=== PATIENT | female | born 1960 | race Caucasian/White ===

== ENCOUNTER 2022-08-08 11:47 | Outpatient (CLI) | payer BC, SELFPAY ==
[2022-08-08 16:33] LABS: Strep A DNA Probe* NOT DETECTED (No Detected)
[2022-08-08 16:46] LABS: PCR FLU A Negative PCR FLU A (Negative); PCR FLU B Negative PCR FLU B (Negative); SARS PCR* POSITIVE SARS-CoV-2 (Negative)
== END 2022-08-08 11:48 | disposition home or self-care (01) ==
PROVIDERS: PCP Internal Medicine; Visit Provider Nurse Practitioner Family
DX: J11.1 Influenza due to unidentified influenza virus with other respiratory manifestations (principal); U07.1 COVID-19
CPT/HCPCS: 87631; 87651

== ENCOUNTER 2022-09-08 16:09 | Outpatient (CLI) | payer BC, SELFPAY ==
[2022-09-08 10:05] LABS: Cholesterol* 254 mg/dL (90-199)
[2022-09-08 10:06] LABS: HDL Cholesterol* 63 mg/dL (>=50); LDL Cholesterol Calculated 172 mg/dL (<100); Triglycerides* 95 mg/dL (40-149)
== END 2022-09-08 16:10 | disposition home or self-care (01) ==
PROVIDERS: PCP Internal Medicine; Visit Provider Internal Medicine
DX: E78.5 Hyperlipidemia, unspecified (principal); L65.9 Nonscarring hair loss, unspecified
CPT/HCPCS: 80061; 84443

== ENCOUNTER 2022-09-25 09:03 | Outpatient (CLI) | payer BC, SELFPAY ==
[2022-09-25 11:17] LABS: Albumin* 4.2 g/dL (3.3-5.0)
[2022-09-25 11:18] LABS: Chloride* 107 mmol/L (96-114); Potassium* 4.7 mmol/L (3.6-5.1); Sodium* 141 mmol/L (135-149)
[2022-09-25 11:20] LABS: Aspartate Amino Transferase* 31 U/L (12-35); Bilirubin Total* 0.4 mg/dL (0.1-1.5); Carbon Dioxide* 27 mmol/L (20-32); Creatinine* 0.8 mg/dL (0.5-1.5); Estimated Glomerular Filt Rate 83 ml/min
[2022-09-25 11:21] LABS: Alanine Aminotransferase* 21 U/L (4-35); Alkaline Phosphatase* 99 U/L (40-150); Blood Urea Nitrogen* 16 mg/dL (7-30); Calcium* 9.1 mg/dL (8.4-10.6); Glucose* 93 mg/dL (60-115); Total Protein* 6.9 g/dL (6.0-8.3)
[2022-09-25 11:50] LABS: Vitamin D 25 Hydroxy* 55 ng/mL (30-80)
== END 2022-09-25 09:04 | disposition home or self-care (01) ==
PROVIDERS: PCP Internal Medicine; Visit Provider Internal Medicine
DX: Z01.419 Encounter for gynecological examination (general) (routine) without abnormal findings (principal); E78.5 Hyperlipidemia, unspecified; E66.01 Morbid (severe) obesity due to excess calories
CPT/HCPCS: 80053; 82306

== ENCOUNTER 2023-05-11 09:10 | Outpatient (CLI) | payer OTHER, SELFPAY | END 2023-05-11 09:11 | disposition home or self-care (01) | LOC: NFLDREF 05-13 06:36 | PROVIDERS: PCP Internal Medicine; Referring Provider Internal Medicine; Visit Provider Internal Medicine | DX: G89.29 Other chronic pain (principal) | CPT/HCPCS: 80053; 82607; 84443; 86039; 86140 ==

== ENCOUNTER 2024-03-02 09:43 | Outpatient (CLI) | payer OTHER, SELFPAY ==
--- OUTSIDE RECORDS SUMMARY | 2024-03-02 09:50 | XMS_ITS | Clinical Summary ---
Author Name Unknown Organization [facility] Address [place], [place] [address] Care Team Providers Care Kitchen Supervisor Name Role Phone Anirudh Gee MD Primary Care Provider [phone] Allergies No known active allergies Medications Medication Sig Dispensed Refills Start Date End Date Status Cholecalciferol, Vitamin D3, (VITAMIN D-3) 2,000 unit tablet Take by mouth. 6000 iu daily 0 04/30/2010 Active HYDROcodone-acetami nophen, 7.5-325 mg, (NORCO 7.5-325) 7.5-325 mg per tablet Take 1 tablet by mouth every 4 hours if needed for Pain. Max acetaminophen dose: 4000mg in 24 hrs. 0 11/14/2010 Active traMADoL (ULTRAM) 50 mg tablet take 1 to 2 tablets by mouth every 6 hrs as needed 08/15/2021 Active predniSONE (DELTASONE) 20 mg tablet 12/16/2021 Active omeprazole (PRILOSEC) 20 mg Delayed-Release capsule Take 20 mg by mouth. 10/23/2020 Acti ve ibuprofen (ADVIL; MOTRIN) 200 mg tablet Take 400 mg by mouth every 6 hours if needed. 10/23/2021 Active azelastine 0.05% ophthalmic (OPTIVAR) 0.05 % ophthalmic solution Place 1 Drop into both eyes 2 times daily. 09/04/2021 Active Active Problems Problem Noted Date Diagnosed Date L4-5 and T9-10 disk bulges 11/14/2010 Lumbar facet arthropathy 11/14/2010 Allergic rhinitis, cause unspecified 06/02/2007 Obesity, unspecified 06/02/2007 Diaphragmatic hernia without mention of obstruction or gangrene 06/02/2007 Immunizations Name Administration Dates Next Due Td (Age >=7 Years) 11/09/2006 Family History Medical History Relation Name Comments Heart Disease Father Cancer-breast Mother Cancer-colon Mother Relation Name Status Comments Father Mother Social History Tobacco Use Types Packs/Day Years Used Date Smoking Tobacco: Former Cigarettes 1 20 0 11/09/1986 - 11/09/2006 Smokeless Tobacco: Never Tobacco Cessation:Counseling Given: Yes Alcohol Use Standard Drinks/Week Comments Not Asked 0 (1 standard drink = 0.6 oz pur e alcohol) Social Connections Answer Date Recorded Frequency of Communication with Friends and Fami ly Not on file 12/16/2021 Financial Resource Strain Answer Date R ecorded Difficulty of Paying Living Expenses Not on file 12/16/2021 Difficulty of Paying Living Expenses Not on file 12/16/2021 Sex and Gender Information Value Date Recorded Sex Assigned at Not on file Gender Identity Not on file Sexual Orientation Not on file Obstetrics History Last Filed Vital Signs Vital Sign Reading Time Taken Comments Blood Pressure 111/71 12/16/2021 1:30 PM BALL MAKER Pulse 80 12/16/2021 1:30 PM BALL MAKER Temperature 36.7 ??C (98 ??F) 12/16/2021 1:30 PM BALL MAKER Respiratory Rate - - Oxygen Saturation 97% 12/16/2021 1:30 PM BALL MAKER Inhaled Oxygen Concentration - - Weight 89.3 kg (196 lb 12.8 oz) 12/16/2021 1:30 PM BALL MAKER shoes on Height - - Body Mass Index - - Plan of Treatment Health Maintenance Due Date Last Done Comments Tdap 1971 Depression screening for age 12+ 1972 HIV for age 15-65 1975 BMI (ht and wt on same day) for age 18+ 1978 Hepatitis C screening for ag e 18-79 1978 Colonoscopy through age 75 2005 Mammogram for age 45-75 2005 Pap test for age 21-65 06/19/2009 06/19/2006 Zoster (shingles) series for age 50+ (1 of 2) 2010 Lipids for age 45-75 07/09/2011 07/09/2006 Tetanus booster 11/09/2016 11/09/2006 COVID-19 vaccine series (2022-24 season) 2023 Influenza for age 50-64 07/10/2024 Pneumococcal series for age 6-64 Aged Out No longer eligible based on patient's age to complete this topic Procedures Procedure Name Priority Date/Time Associated Diagnosis Comments LIPID PANEL Timed 07/09/2006 7:44 AM CDT GYNECOLOGICAL PANEL Timed 06/19/2006 1 0:59 AM CDT from Last 3 Months or Most Recently Relevant to Health Maintenance Results * (ABNORMAL) LIPID PANEL (07/09/2006 7:44 AM CDT) CHOLESTEROL,TOTAL 214(H) 110 - 199 mg/dL [facility] TRIGLYCERIDES 68 <150 mg/dL [facility] HDL CHOLESTEROL 45 >40 mg/dL [facility] CHOL/HDL RATIO 4.76(H) <4.51 [facility] LDL CHOLESTEROL 155(H) <131 mg/dL [facility] PATIENT STATUS Fasting [facility] 07/09/2006 7:44 AM CDT 07/09/2006 7:44 AM CDT Priya Rey NP CHEMISTRY [facility] [address] [place] [address] * GYNECOLOGICAL PANEL (06/19/2006 10:59 AM CDT) CYTOLOGY ??CYTOPATHOLOGY REPORT ??[facility] ?? Status: Final Report ? [id number] ?? CLINICAL INFORMATION ?LMP ? : 06/01/06 ?Previous Pap Date ? : 03/13 ?Previous PAP Dx ? : Negative ?Previous [place]/bx date : None ?Previous Colposcopy/Bx: None ?Appearance of Cervix ??: Not given ?[place]/Bx done today ?: No ?HPV Request ? : Reflex HPV test if PAP Dx ASCUS ?? SPECIMEN SOURCE ?: Cervical/vaginal ThinPrep Vial, screening ?? SPECIMEN ADEQUACY ?: Satisfactory for evaluation Endocervical ?component present. ? INTERPRETATION/RES ULT: ?Negative for intraepithelial lesion or malignancy. ? Cytology 1st Screener : ??kek ?? Signed by: ? kek ?? This specimen was screened by the FDA approved ThinPrep Imaging ?? System and manually reviewed. ?? NOTE: The Pap test is a screening technique, not a diagnostic ?? procedure. It is used primarily to screen for squamous cancers and ?? precursor lesions. Published studies have shown that it is subject to ?? both false negative and false positive results. The pap test should ?? not be used as the sole means to diagnose or exclude pre-malignant and ?? malignant lesions. ?? COLLECTED: 06/19/06 ?? ACCESSIONED: 06/22/06 ?? SIGNED: 06/30/06 [facility] 06/19/2006 10:5 9 AM CDT 06/22/2006 11:44 AM CDT Priya Rey NP PATHOLOGY/CYTOLOGY [facility] INTERNAL ZIP [address] [address] from Last 3 Months or Most Recently Relevant to Health Maintenance Care Teams Kitchen Supervisor Relationship Specialty Start Date End Date Anirudh Gee MD [address] [place] [address] PCP - General Internal Medicine 09/26/19
--- OUTSIDE RECORDS SUMMARY | 2024-03-02 09:50 | XMS_ITS | Clinical Summary ---
Author Name Unknown Organization [facility] Address [address], [place] [address] Care Team Providers Care Veneer Sample Maker Name Role Phone Pcp, Pt Declines MD Primary Care Provider [phone] Source Comments You are receiving this document as you are listed as the primary care provider,follow-up provider, or the patient has been referred to you for consultation.This is in compliance with the Medicare and[facility] EHR Incentive Program,which states Providers who transition their patient to another setting of careor provider of care or refers their patient to another provider of care shouldprovide summary care record for each transition of care or referral. [facility] Allergies Active Allergy Reactions Criticality Noted Date Comments Pollen Extract 07/15/2017 Medications Medication Sig Dispensed Refills Start Date End Date Status HYDROcodone-acetam inophen (NORCO) 7.5-325 MG tablet 0 06/13/2017 Active omeprazole (PRILOSEC) 20 MG capsule Take 20 mg by mouth daily. Take 1 hour before a meal. Active ibuprofen (MOTRIN) 200 MG tabletIndications: Carpal tunnel syndrome on left Take 2 Tablets by mouth every 6 hours as needed for Pain (Mild Pain). This may be safely mixed with the prescription pain medications (oxycodone, hydrocodone or tramadol.)?? This may also be safely mixed with acetaminophen. 100 Tablet 10/23/2021 Active Active Problems No known active problems Family History Medical History Relation Name Comments Heart Disease Father Cancer Mother Relation Name Status Comments Father Mother Social History Tobacco Use Types Packs/Day Years Used Date Smoking Tobacco: Former Smokeless Tobacco: Never Sex and Gender Information Value Date Recorded Sex Assigned at Not on file Gender Identity Not on file Sexual Orientation Not on file Last Filed Vital Signs Vital Sign Reading Time Taken Comments Blood Pressure - - Pulse - - Temperature - - Respiratory Rate - - Oxygen Saturation - - Inhaled Oxygen Concentration - - Weight 89.8 kg (198 lb) 07/10/2020 10:47 AM CDT Height 160 cm (5' 3) 07/10/2020 10:47 AM CDT Body Mass Index 35.07 07/10/2020 10:47 AM CDT Plan of Treatment Health Maintenance Due Date Last Done Comments Cervical Cancer Screening Due 1960 Colon Cancer Screening Plan Due 1960 Hep C Screening (Preventive Services) 1960 Mammogram 1960 HIV Screening (Preventive Services) 1976 Adult Preventive Visit 1978 Cholesterol 2005 Zoster/Shingles (2 of 2) 11/17/2019 09/22/2019 COVID-19 Vaccine ( season) 2023 Influenza (#1) 2023 09/09/2007, 09/09/2007 DTaP/Tdap/Td (2 - Tdap) 09/22/2029 09/22/20 19, 11/11/2008, 11/09/2006, Additional history exists HepA Aged Out No longer eligi ble based on patient's age to complete this topic HepB Aged Out No longer eligi ble based on patient's age to complete this topic Hib Aged Out No longer eligi ble based on patient's age to complete this topic IPV (Polio) Aged Out No longer eligi ble based on patient's age to complete this topic MCV4 Aged Out No longer eligi ble based on patient's age to complete this topic Pneumococcal Aged Out No longer eligi ble based on patient's age to complete this topic Care Teams Veneer Sample Maker Relationship Specialty Start Date End Date Pcp, Pt Nella, [place] [address] PCP - General 07/15/17
--- OUTSIDE RECORDS SUMMARY | 2024-03-02 09:50 | XMS_ITS | Encounter Summary ---
Author Name Unknown Organization [facility] Address [address] [place] [address] Care Team Providers Care Help Desk Agent Name Role Phone Unavailable Primary Care Provider Unavailabl e Encounter Details Date Type Department Care Team (Late st Contact Info) Description 01/07/2024 Orders Only Division of Gastroenterology in [place], [place] [address] [place] [id number] Arnold Ervin M.D. [address] [place] [address] Genetic Susceptibility To Disease Social History Tobacco Use Types Packs/Day Years Used Date Smoking Tobacco: Former Cigarettes 1 29 0 02/19/1975 - 11/21/2003 Smokeless Tobacco: Never Alcohol Use Standard Drinks/Week Comments Yes 3 (1 standard drink = 0.6 oz pur e alcohol) Social Connection and Isolat ion Panel [NHANES] Answer Date Recorded Frequency of Communication w ith Friends and Family Not on file 05/24/2020 Frequency of Social Gatherin gs with Friends and Family Not on file 05/24/2020 Attends Yarsani Services Not on file 05/24 Do you belong to any clubs o r organizations such as sabianism groups, unions, fraternal or athletic groups, or school groups? Yes 05/24/2020 How often do you attend meet ings of the clubs or organizations you belong to? More than 4 times per year 05/24/2020 Marital Status Not on file 05/24/2020 AUDIT-C Answer Date Recorded Q1: How often do you have a drink containing alc ohol? 2-3 times a week 11/28/2019 Q2: How many drinks containi ng alcohol do you have on a typical day when you are drinking? 1 or 2 11/28/2019 Q3: How often do you have si x or more drinks on one occasion? Never 11/28/2019 Overall Financial Resource Strain (CARDIA) Answe r Date Recorded How hard is it for you to pa y for the very basics like food, housing, medical care, and heating? Not very hard 05/24/2020 [facility] - Occupational Stress Questionnaire Answer Date Recorded Do you feel stress - tense, restless, nervous, or anxious, or unable to sleep at night because your mind is troubled all the time - these days? To some extent 05/24/2020 Exercise Vital Sign Answer Date Recorde d On average, how many days pe r week do you engage in moderate to strenuous exercise (like a brisk walk)? 0 days 11/28/2019 On average, how many minutes do you engage in exercise at this level? 0 min 11/28/2019 Hunger Vital Sign Answer Date Recorded Worried About Running Out of Food in the Last Ye ar Not on file 05/24/2020 Within the past 12 months, t he food you bought just didn't last and you didn't have money to get more. Patient declined PRAPARE - Transportation Answer Date Re corded In the past 12 months, has l ack of transportation kept you from medical appointments or from getting medications? No 11/10 In the past 12 months, has l ack of transportation kept you from meetings, work, or from getting things needed for daily living? No 11/28/2019 Nutrition Answer Date Recorded Nutrition: EVOO Fat Source Unknown 06/27 Nutrition: Servings of Fruits/Vegetables per Day Not on file 06/27/2023 Dental Answer Date Recorded Dental: Regular Dentist Unknown 06/27/20 Education Answer Date Recorded What is the highest level of school you have completed or the highest degree you have received? Some college, no degree 11/28/2019 Sex and Gender Information Value Date Recorded Sex Assigned at Female 05/25/2020 8:23 AM CDT Gender Identity Female 05/25/2020 8:23 AM CDT Sexual Orientation Straight 05/25/2020 8: 23 AM CDT documented as of this encounter Plan of Treatment Not on file documented as of this encounter Procedures Procedure Name Priority Date/Time Associated Diagnosis Comments EXT TAPESTRY Routine 05/22/2020 12:00 AM CDT Genetic Susceptibility To Disease documented in this encounter Results * EXT Tapestry (05/22/2020 12:00 AM CDT) Gene Studied BRCA1,BRCA2,MLH1,MSH 2,MSH 6,PMS2,EPCAM,APOB,LDLR,LD LRAP1,PCSK9 12:00 AM CDT [facility] Genetic Disease Assessed Evaluation of 11 genes associated with Hereditary Breast and Ovarian Cancer, Santana Syndrome and Familial Hypercholesterolemia. 12:00 AM CDT [facility] Genetic Analysis Overall Interpretation Negative results through Tapestry do not replace diagnostic testing for patients with a personal or family history of cancer/hypercholesterolem ia due to limitations with methodology. Consider a referral to a genetic counselor for diagnostic testing if warranted. 12:00 AM CDT [facility] Genetic Analysis Report See Tapestry PDF Report No actionable gene changes were detected in the genes that cause Familial Hypercholesterolemia. The genes tested for this condition were APOB, LDLR, LDLRAP1, and PCSK9.No actionable gene changes were detected in the genes that cause Hereditary Breast and Ovarian Cancer. The genes tested for this condition were BRCA1 and BRCA2.No actionable gene changes were detected in the genes that cause Santana Syndrome. The genes tested for this condition were MLH1, MSH2, MSH6, PMS2 and EPCAM. Clinical confirmation of actionable variants is advised prior to changing your medical care. Genetic counseling is recommended. This test is not intended to diagnose a disease, determine medical treatment, or tell the user anything about their current state of health. This test is intended to provide users with their genetic information to inform lifestyle decisions and conversations with their doctor. Any diagnostic or treatment decisions should be based on testing and/or other information that your healthcare provider determines to be appropriate for you. DNA extracted from your saliva sample was captured and enriched using a custom set of reagents ([employer]+ chemistry). Targeted regions were then sequenced using an Illumina DNA sequencing system. Alignment to a modified version of GRCh38 and variant calling were completed using a customized version of [employer]'s DNAseq software, requiring 20x coverage for validated variant calls. The test panel is bioinformatically selected from the [employer] Exome+. Copy Number Variants (CNVs) were called using a proprietary bioinformatics pipeline that compared the coverage profile of your sample with the coverage profiles of a reference set of other samples. [facility] then analyzed generated variant data for the exons and 10 bp of flanking intronic sequence (and select tagged intronic variants) of the 11 genes included in [facility] from the [employer] Database. The Analytical Range includes single nucleotide variants (SNVs), indels up to 20 bp in length, and CNVs. Note: CNV sensitivity is limited to events that span two or more exons. For genes involved in Familial Hypercholesterolemia, only variants associated with the condition are reported, while variants associated with other phenotypes such as hypobetalipoproteinemia are not included. Some known complex variants like inversion exon 1-7 in the MSH2 gene (Rosa inversion) or exons 11-15 of the PMS2 gene are not analyzed or reported. Finally, it is important to note that this assay cannot detect all variants known to increase disease risk. ??Specifically, there are regions that are not covered, such as deep intronic, promoter, homopolymer regions greater than 7 bp, and untranslated regions. 1 12:00 AM T [facility] Human Reference Sequence Assembly GRCh38 1 12:00 AM [facility] Saliva (Mouth) 05/22/2020 Arnold Ervin M.D. LAB GENETI C TESTING [facility] [address], [address] [place] [address], [facility] [address] [address], [address]. [place] [address] documented in this encounter Visit Diagnoses Diagnosis Genetic Susceptibility To Disease documented in this encounter
--- OUTSIDE RECORDS SUMMARY | 2024-03-02 09:50 | XMS_ITS | Clinical Summary ---
Author Name Unknown Organization [facility] Address [address] [place] [address] Care Team Providers Care Spreader Operator Name Role Phone Unavailable Primary Care Provider Unavailabl e Source Comments Patient records contain information from all sites at [facility]. For routine questions regarding patient records, call [phone] during business hours, M-F 8:00 AM - 5:00 PM Central Time. Record requests for emergency care only can be directed to [phone] at any time.[facility] Allergies Active Allergy Reactions Criticality Noted Date Comments House Dust Mite Other (see comments) 10/23/2004 No reaction listed Mold Other (see comments) 10/23/2004 No reaction listed Ragweed Other (see comments) 09/20/2015 Sneezing Homer Other (see comments) 10/23/2004 No reaction listed Medications Medication Sig Dispensed Refills Start Date End Date Status metroNIDAZOLE (ROSADAN) 0.75 % gel Apply 1 application topically 2 (two) times a day. Apply to face twice daily. 09/21/2015 Active HYDROcodone-acetam inophen (NORCO) 7.5-325 mg per tablet Take 1 tablet by mouth every 6 (six) hours as needed. 04/19/2012 Active escitalopram (LEXAPRO) 10 mg tablet 3 10/06/2018 Active fluticasone (FLONASE) 50 mcg/actuation nasal spray Seasonal 11 10/10/2018 Active meclizine (ANTIVERT) 25 mg tablet Take 25 mg by mouth. 12/29/2016 Active famotidine (PEPCID) 40 mg tablet Take 1 tablet (40 mg total) by mouth daily. 30 tablet 11 05/29/2020 Active omeprazole (PriLOSEC) [address] capsule TAKE ONE CAPSULE BY MOUTH ONE TIME DAILY 90 capsule 01/23/2022 Active Active Problems Problem Noted Date Diagnosed Date Thrombosis Deep Vein Personal History 07/19/2018 Encounters Date Type Department Care Team Description 01/07/2024 Orders Only Division of Gastroenterology in [place], [place] [address] [place] [address] Arnold Ervin M.D. Genetic Susceptibility To Disease from Last 3 Months Immunizations Name Administration Dates Next Due Influenza, Unspecified 09/09/2007 Td, (Adult) Unspecified 11/09/1996 Family History Medical History Relation Name Comments Coronary artery disease Father Wilberto Skin cancer Father Wilberto pre-cancerous Alcohol abuse Maternal Grandfather Jordon Coronary artery disease Maternal Grandfather Jordon Breast cancer Mother Liz Colon cancer Mother Liz Alcohol abuse Mother's Brother 1 Quentin Anxiety disorder Mother's Brother 1 Quentin Depression Mother's Brother 1 Quentin Diabetes Mother's Brother 1 Quentin Psychiatric Mother's Brother 1 Quentin Suicide Attempts Mother's Brother 1 Quentin Alcohol abuse Mother's Brother 2 Junior Anxiety disorder Mother's Brother 2 Junior Depression Mother's Brother 2 Junior Diabetes Mother's Brother 2 Junior Psychiatric Mother's Brother 2 Junior Transient ischemic attack Paternal Grandfather Uriah Anxiety disorder Paternal Grandmother Mireille Depression Paternal Grandmother Mireille Stroke Paternal Grandmother Mireille Transient ischemic attack Paternal Grandmother Mireille Bipolar disorder Uncle Depression Uncle Diabetes Uncle Relation Name Status Comments Father Wilberto Maternal Grandfather Jordon Mother Liz Mother's Brother 1 Quentin Mother's Brother 2 Junior Paternal Grandfather Uriah Paternal Grandmother Mireille Uncle Social History Tobacco Use Types Packs/Day Years [...] and Family Not on file 05/24/2020 Attends Jewish Services Not on file 05/24 Do you [...] care, and heating? Not very hard 05/24/2020 [facility] [place] - Occupational Stress Questionnaire Answer Date Recorded [...] Orientation Straight 05/25/2020 8: 23 AM CDT Last Filed Vital Signs Vital Sign Reading Time Taken Comments Blood Pressure 129/74 05/28/2020 9:15 AM CDT Pulse 50 05/28/2020 9:01 AM CDT Temperature 35.8 ??C (96.4 ??F) 05/28/2020 9:01 AM CD T Respiratory Rate 17 05/28/2020 9:01 AM CDT Oxygen Saturation 97% 05/28/2020 9:15 AM CDT Inhaled Oxygen Concentration - - Weight 88.5 kg (195 lb) 05/28/2020 7:01 AM CDT Height 161.5 cm (5' 3.58) 12/02/2019 8:20 AM CS T Body Mass Index 33.91 12/02/2019 8:20 AM SHALE PLANER OPERATOR Plan of Treatment Health Maintenance Due Date Last Done Comments CT Colonography 1960 Cologuard 1960 Fasting Glucose for Diabetes Screening 1960 HIV Screening 1960 Hepatitis C Screening 1960 Lipid (Cholesterol) Screening 1960 Zoster Vaccines (2 of 2) 11/17/2019 09/22/2019 COVID-19 Vaccine ( - season) 2023 Mammogram 09/23/2023 09/23/2022, 11/10, 10/23/2017, Additional history exists Depression Screening (Annual PHQ-2) 11/09/2023 Colonoscopy 05/28/2025 05/28/2020, 05/10, 10/01/2015, Additional history exists Colorectal Cancer Surveillance 05/28/2025 DTaP,Tdap,and Td Vaccines (2 - Td or Tdap) 09/22/2029 09/22/2019, 11/11/2008, 11/09/1996 Pneumococcal vaccine (0-64 years) Aged Out No longer eligible based on patient's age to complete this topic Medical Devices Implanted Type Area Spring Intern Device Identifier Shelf Expiration Date Model / Serial / Lot Mesh Or Patch Mesh or Patch Other/Legacy - See Implant Description Description:Vaginal Mesh imp lant in 2008. Conversions - Default Historical Implant Device Implanted:09/10 (Quantity not on file) Urogenital Implant Description:Device Status Te xt - Urogenitl. mesh. Procedures Procedure Name Priority Date/Time Associated Diagnosis Comments BI BREAST SCREENING BILATERAL WITH TOMOSYNTHESIS RAD - Routine (most inpatients and all outpatients) 09/23/2022 10:30 AM SHALE PLANER OPERATOR Screening Mammogram Breast Cancer COLONOSCOPY RESTRICTED Routine 05/28/2020 7:33 AM CDT Cancer Colon Family History Genetic Susceptibility To Cancer from Last 3 Months or Most Recently Relevant to Health Maintenance Results * BI Breast Screening Bilateral with Tomosynthesis (09/23/2022 10:30 AM SHALE PLANER OPERATOR) Anatomical Region Laterality Modality Breast, Breast Imaging RST L OS, Breast Imaging ARZ LOS, Breast Imaging FLA LOS Bilateral Mammography 09/23/2022 11:1 0 AM SHALE PLANER OPERATOR Impressions 09/23/2022 11:26 AM SHALE PLANER OPERATOR Negative. RECOMMENDATION: ??Annual Screening Mammogram ASSESSMENT: ??BI-RADS: 1: Negative. Narrative 09/23/2022 11:26 AM SHALE PLANER OPERATOR EXAM: ??BI BREAST SCREENING BILATERAL WITH TOMOSYNTHESIS Current study was evaluated with a Computer Aided Detection (CAD) system. INDICATION: ??Screening mammogram. COMPARISON: ??Prior exam(s) were available and reviewed for comparison. DENSITY: ??b. There are scattered areas of fibroglandular density. FINDINGS: ??No findings of malignancy. ??No significant change since prior exam. Procedure Note Jordyn Davis M.D. - 09/23/2022 EXAM: BI BREAST SCREENING BILATERAL WITH TOMOSYNTHESIS Current study was evaluated with a Computer Aided Detection (CAD) system. INDICATION: Screening mammogram. COMPARISON: Prior exam(s) were available and reviewed for comparison. DENSITY: b. There are scattered areas of fibroglandular density. FINDINGS: No findings of malignancy. No significant change since priorexam. IMPRESSION: Negative. RECOMMENDATION: Annual Screening Mammogram ASSESSMENT: BI-RADS: 1: Negative. Anirudh CABRERA BI PROCEDURE S from Last 3 Months or Most Recently Relevant to Health Maintenance
--- OUTSIDE RECORDS SUMMARY | 2024-03-02 09:50 | XMS_ITS ---
Author Name Unknown Organization [facility] Address [address] [place] [address] Care Team Providers Care Glass Cutting Machine Operator Name Role Phone Unavailable Unavailable Unavailable Surgery Details Not on file Complications Check Surgery Details section. Procedure Estimated Blood Loss Check Surgery Details section. Procedure Findings Check Surgery Details section. Procedure Specimens Taken Check Surgery Details section.
--- OUTSIDE RECORDS SUMMARY | 2024-03-02 09:50 | XMS_ITS | Encounter Summary ---
Author Name Unknown Organization [facility] Address [address] [place] [address] Care Team Providers Care Sedimentationist Name Role Phone Unavailable Primary Care Provider Unavailabl e Reason for Referral * Outpatient (Routine) - Closed Specialty Diagnoses / Procedures Referred By Christine owens Referred To Contact Gynecology Diagnoses Infection Urinary Tract Chronic Chiqui Edwards M.D. [address] [place] [address] [facility] Referral ID Status Reason Start Date Expiration Date Visits Re quested Visits Authorized [id number] Closed 07/09/2018 07/09/2019 1 1 Encounter Details Date Type Department Care Team (Late st Contact Info) Description 07/09/2018 [facility] [address] [place] [address] Chiqui Edwards M.D. [address] [place] [address] Infection Urinary Tract Chronic (Primary Dx) Social History Tobacco Use Types Packs/Day Years Used Date Smoking Tobacco: Unknown Sex and Gender Information Value Date Recorded Sex Assigned at Female 05/25/2020 8:23 AM CDT Gender Identity Female 05/25/2020 8:23 AM CDT Sexual Orientation Straight 05/25/2020 8: 23 AM CDT documented as of this encounter Plan of Treatment Scheduled Referrals Name Type Priority Associated Diagnoses Order Schedule Urogynecology Referral Outpatient Referral Routine Infection Urinary Tract Chronic Expected: 07/09/2018 (Approximate), Expires: 07/09/2021 documented as of this encounter Visit Diagnoses Diagnosis Infection Urinary Tract Chronic- Primary documented in this encounter Additional Health Concerns Infection Onset Date Last Indicated Resolved Time COVID19 Pending 05/25/2020 05/25/2020 05/26/2020 2 :30 AM CDT documented as of this encounter
--- OUTSIDE RECORDS SUMMARY | 2024-03-02 09:50 | XMS_ITS | Referral Summary ---
Author Name Unknown Organization [facility] Address [address] [place] [address] Care Team Providers Care Security Systems Technician Name Role Phone Unavailable Primary Care Provider Unavailabl e Source Comments Patient records contain information from all sites at [facility]. For routine questions regarding patient records, call [phone] during business hours, M-F 8:00 AM - 5:00 PM Central Time. Record requests for emergency care only can be directed to [phone] at any time.[facility] Encounters Date Type Department Care Team Description 01/07/2024 Orders Only Division of Gastroenterology in [place], [place] [address] [place] [address] Arnold Ervin M.D. Genetic Susceptibility To Disease from Last 3 Months Allergies Active Allergy Reactions Criticality Noted Date [...] Date Thrombosis Deep Vein Personal History 07/19/2018 Immunizations Name Administration Dates Next Due Influenza, Unspecified 09/09/2007 Td, (Adult) Unspecified 11/09/1996 Social History Tobacco Use Types Packs/Day Years [...] and Family Not on file 05/24/2020 Attends Yazidism Services Not on file 05/24 Do you belong to any clubs o r organizations such as restorationism groups, unions, fraternal or athletic groups, or [...] care, and heating? Not very hard 05/24/2020 [facility] [place] of Occupat ional Health - Occupational Stress [...] Body Mass Index 33.91 12/02/2019 8:20 AM PROJECT COORDINATOR Plan of Treatment Not on file Medical Devices Implanted Type Area Safety Fire Boss Device Identifier Shelf Expiration Date Model / [...] inpatients and all outpatients) 09/23/2022 10:30 AM PROJECT COORDINATOR Screening Mammogram Breast Cancer COLONOSCOPY RESTRICTED Routine 05/28/2020 7:33 AM CDT Cancer Colon Family History Genetic Susceptibility To Cancer from Last 3 Months or Most Recently Relevant to Health Maintenance Results * BI Breast Screening Bilateral with Tomosynthesis (09/23/2022 10:30 AM PROJECT COORDINATOR) Anatomical Region Laterality Modality Breast, Breast Imaging RST L OS, Breast Imaging ARZ LOS, Breast Imaging FLA LOS Bilateral Mammography 09/23/2022 11:1 0 AM PROJECT COORDINATOR Impressions 09/23/2022 11:26 AM PROJECT COORDINATOR Negative. RECOMMENDATION: ??Annual Screening Mammogram ASSESSMENT: ??BI-RADS: 1: Negative. Narrative 09/23/2022 11:26 AM PROJECT COORDINATOR EXAM: ??BI BREAST SCREENING BILATERAL WITH TOMOSYNTHESIS [...] Screening Mammogram ASSESSMENT: BI-RADS: 1: Negative. Anirudh Gee M.D. IMG BI PROCEDURE S from Last 3 Months or Most Recently Relevant to Health Maintenance
[2024-03-02 10:05] LABS: Lab Add On Test New Spec Needed
== END 2024-03-02 09:44 | disposition home or self-care (01) ==
LOC: NFLDREF 09:44
PROVIDERS: PCP Internal Medicine; Visit Provider Internal Medicine
DX: Z13.1 Encounter for screening for diabetes mellitus (principal); Z13.220 Encounter for screening for lipoid disorders
CPT/HCPCS: 80053; 80061

== ENCOUNTER 2024-06-14 17:02 | Outpatient (CLI) | payer OTHER, SELFPAY ==
--- OUTSIDE RECORDS SUMMARY | 2024-06-15 11:03 | XMS_ITS | Encounter Summary ---
Author Organization [facility] Address [address] [place] [address] Care Team Providers Care Wedger Name Role Phone Unavailable Primary Care Provider Unavailabl e Reason for Referral * Outpatient (Routine) - Closed Specialty Diagnoses / Procedures Referred By Christine owens Referred To Contact Gynecology Diagnoses Infection Urinary Tract Chronic Chiqui Edwards M.D. [address] [place] [address] [facility] Referral ID Status Reason Start Date Expiration Date Visits Re quested Visits Authorized [id number] Closed 07/09/2018 07/09/2019 1 1 Encounter Details Date Type Department Care Team (Late st Contact Info) Description 07/09/2018 [facility] [address] [place] [address] Chiqui Edwards M.D. [address] [place] [phone] Infection Urinary Tract Chronic (Primary Dx) Social [...]
--- OUTSIDE RECORDS SUMMARY | 2024-06-15 11:03 | XMS_ITS | Encounter Summary ---
Author Organization [facility] Address [address] [place] [address] Care Team Providers Care Yeast Washer Name Role Phone Unavailable Primary Care Provider Unavailabl e Encounter Details Date Type Department Care Team (Latest Contact Info) Description 03/09/2024 [facility] [address] [place] [address] Anirudh Gee M.D. [address] [place] [address] Gastroesophageal Reflux Disease Without Esophagitis (Primary Dx) Social History Tobacco Use Types [...] and Family Not on file 05/24/2020 Attends Scientologist Services Not on file 05/24 Do you belong to any clubs o r organizations such as rastafarian groups, unions, fraternal or athletic groups, or [...] care, and heating? Not very hard 05/24/2020 [facility] Occupat ional Health - Occupational Stress [...] on file documented as of this encounter Visit Diagnoses Diagnosis Gastroesophageal Reflux Disease Without Esophagitis- Primary documented in this encounter
--- OUTSIDE RECORDS SUMMARY | 2024-06-15 11:03 | XMS_ITS ---
Author Organization [facility] Address [address] [place] [address] Care Team Providers Care Collar Pointer Name Role Phone Unavailable Unavailable Unavailable Surgery Details Not on file Complications Check Surgery Details section. Procedure Estimated Blood Loss Check Surgery Details section. Procedure Findings Check Surgery Details section. Procedure Specimens Taken Check Surgery Details section.
--- OUTSIDE RECORDS SUMMARY | 2024-06-15 11:03 | XMS_ITS | Clinical Summary ---
Author Organization [facility] Address [address] [place] [address] Care Team Providers Care Spinning Bath Patroller Name Role Phone Unavailable Primary Care Provider Unavailabl e Source Comments Patient records contain information from all sites at [facility]. For routine questions regarding patient records, call [phone] during business hours, M-F 8:00 AM - 5:00 PM Central Time. Record requests for emergency care only can be directed to [phone] at any time.[facility] Allergies Active Allergy Reactions Criticality Noted [...] Encounters Date Type Department Care Team Description 03/16/2024 [facility] [address] [place] [address] Anirudh Gee M.D. Other Specified Symptoms And Signs Involving The Digestive System And Abdomen (Primary Dx); Melena from Last 3 Months Immunizations Name Administration [...] and Family Not on file 05/24/2020 Attends Gnosticism Services Not on file 05/24 Do you belong to any clubs o r organizations such as christian groups, unions, fraternal or athletic groups, or [...] care, and heating? Not very hard 05/24/2020 [facility] of Occupat ional Health - Occupational Stress [...] Body Mass Index 33.91 12/02/2019 8:20 AM LINE PERSON Plan of Treatment Health Maintenance Due Date [...] this topic Medical Devices Implanted Type Area Writing Manager Device Identifier Shelf Expiration Date Model / [...] inpatients and all outpatients) 09/23/2022 10:30 AM LINE PERSON Screening Mammogram Breast Cancer COLONOSCOPY RESTRICTED Routine 05/28/2020 7:33 AM CDT Cancer Colon Family History Genetic Susceptibility To Cancer from Last 3 Months or Most Recently Relevant to Health Maintenance Results * BI Breast Screening Bilateral with Tomosynthesis (09/23/2022 10:30 AM LINE PERSON) Anatomical Region Laterality Modality Breast, Breast Imaging RST L OS, Breast Imaging ARZ LOS, Breast Imaging FLA LOS Bilateral Mammography 09/23/2022 11:1 0 AM LINE PERSON Impressions 09/23/2022 11:26 AM LINE PERSON Negative. RECOMMENDATION: ??Annual Screening Mammogram ASSESSMENT: ??BI-RADS: 1: Negative. Narrative 09/23/2022 11:26 AM LINE PERSON EXAM: ??BI BREAST SCREENING BILATERAL WITH TOMOSYNTHESIS [...] ASSESSMENT: BI-RADS: 1: Negative. Anirudh Gee M.D. IMReinaldo BI PROCEDURE S from Last 3 Months or Most Recently Relevant to Health Maintenance
--- OUTSIDE RECORDS SUMMARY | 2024-06-15 11:03 | XMS_ITS | Encounter Summary ---
Author Organization [facility] Address [address] [place] [address] Care Team Providers Care Medical Aide Name Role Phone Unavailable Primary Care Provider Unavailabl e Reason for Referral * Outpatient (Routine) - Authorized Specialty Diagnoses / Procedures Referred By Contact Referred To Contact Gastroenterology and Hepatology Diagnoses Other Specified Symptoms And Signs Involving The Digestive System And Abdomen Anirudh Fernandez M.D. [address] [place] [address] [facility] Referral ID Status Reason Start Date Expiration Date V isits Requested Visits Authorized [id number] Authorized 03/16/2024 09/15/2025 1 1 Encounter Details Date Type Department Care Team (Late st Contact Info) Description 03/16/2024 [facility] [address] [place] [address] Anirudh Gee M.D. [address] [place] [phone] Other Specified Symptoms And Signs Involving The Digestive System And Abdomen (Primary Dx); Melena Social History Tobacco Use Types Packs/Day Years [...] and Family Not on file 05/24/2020 Attends Quaker Services Not on file 05/24 Do you belong to any clubs o r organizations such as druze groups, unions, fraternal or athletic groups, or [...] care, and heating? Not very hard 05/24/2020 [facility] [place] of Occupat ional Health - Occupational Stress [...] Name Type Priority Associated Diagnoses Order Schedule Gastroenterology & Hepatology Referral Outpatient Referral Routine Other Specified Symptoms And Signs Involving The Digestive System And Abdomen Melena Expected: 03/16/2024 (Approximate), Expires: 06/16/2025 documented as of this encounter Visit Diagnoses Diagnosis Other Specified Symptoms And Signs Involving The Digestive System And Abdomen- Primary Melena documented in this encounter
--- OUTSIDE RECORDS SUMMARY | 2024-06-15 11:03 | XMS_ITS | Referral Summary ---
Author Organization [facility] Address [address] [place] [address] Care Team Providers Care Laundry Machine Mechanic Name Role Phone Unavailable Primary Care Provider Unavailabl e Source Comments Patient records contain information from all sites at [facility]. For routine questions regarding patient records, call [phone] during business hours, M-F 8:00 AM - 5:00 PM Central Time. Record requests for emergency care only can be directed to [phone] at any time.[facility] Encounters Date Type Department Care Team Description 03/16/2024 [facility] [address] [place] [address] Anirudh Gee M.D. Other Specified Symptoms And Signs Involving The Digestive System And Abdomen (Primary Dx); Melena from Last 3 Months Allergies Active Allergy [...] and Family Not on file 05/24/2020 Attends Congregation Services Not on file 05/24 Do you [...] care, and heating? Not very hard 05/24/2020 [facility] [place] of Occupat ional Health - Occupational Stress [...] Body Mass Index 33.91 12/02/2019 8:20 AM VEST MAKER Plan of Treatment Not on file Medical Devices Implanted Type Area First Dyer Device Identifier Shelf Expiration Date Model / [...] inpatients and all outpatients) 09/23/2022 10:30 AM VEST MAKER Screening Mammogram Breast Cancer COLONOSCOPY RESTRICTED Routine 05/28/2020 7:33 AM CDT Cancer Colon Family History Genetic Susceptibility To Cancer from Last 3 Months or Most Recently Relevant to Health Maintenance Results * BI Breast Screening Bilateral with Tomosynthesis (09/23/2022 10:30 AM VEST MAKER) Anatomical Region Laterality Modality Breast, Breast Imaging RST L OS, Breast Imaging ARZ LOS, Breast Imaging FLA LOS Bilateral Mammography 09/23/2022 11:1 0 AM VEST MAKER Impressions 09/23/2022 11:26 AM VEST MAKER Negative. RECOMMENDATION: ??Annual Screening Mammogram ASSESSMENT: ??BI-RADS: 1: Negative. Narrative 09/23/2022 11:26 AM VEST MAKER EXAM: ??BI BREAST SCREENING BILATERAL WITH TOMOSYNTHESIS [...]
--- OUTSIDE RECORDS SUMMARY | 2024-06-15 11:04 | XMS_ITS | Clinical Summary ---
Author Organization [facility] Address [address], [place] [address] Care Team Providers Care Rag Production Worker Name Role Phone Pcp, Pt Declines MD Primary Care Provider [phone] Source Comments You are receiving this document as you are listed as the primary care provider,follow-up provider, or the patient has been referred to you for consultation.This is in compliance with the Medicare and[facility] EHR Incentive Program,which states Providers who transition their patient to another setting of careor provider of care or refers their patient to another provider of care shouldprovide summary care record for each transition of care or referral. [facility] Allergies Active Allergy Reactions Criticality Noted Date [...] COVID-19 Vaccine ( season) 2023 Influenza (#1) 2024 09/09/2007, 09/09/2007 DTaP/Tdap/Td (2 - Tdap) 09/22/2029 [...] age to complete this topic Care Teams Rag Production Worker Relationship Specialty Start Date End Date Pcp, Pt Nella, [place] [address] PCP - General 07/15/17
--- OUTSIDE RECORDS SUMMARY | 2024-06-15 11:04 | XMS_ITS | Clinical Summary ---
Author Organization [facility] Address [place], [place] [address] Care Team Providers Care Care Tech Name Role Phone Anirudh Gee MD Primary Care Provider Allergies No known active allergies Medications Medication [...] Comments Blood Pressure 111/71 12/16/2021 1:30 PM PARENT AIDE Pulse 80 12/16/2021 1:30 PM PARENT AIDE Temperature 36.7 ??C (98 ??F) 12/16/2021 1:30 PM PARENT AIDE Respiratory Rate - - Oxygen Saturation 97% 12/16/2021 1:30 PM PARENT AIDE Inhaled Oxygen Concentration - - Weight 89.3 kg (196 lb 12.8 oz) 12/16/2021 1:30 PM PARENT AIDE shoes on Height - - Body Mass [...] CDT) CHOLESTEROL,TOTAL 214(H) 110 - 199 mg/dL [facility] TRIGLYCERIDES 68 <150 mg/dL [facility] HDL CHOLESTEROL 45 >40 mg/dL [facility] CHOL/HDL RATIO 4.76(H) <4.51 [facility] LDL CHOLESTEROL 155(H) <131 mg/dL [facility] PATIENT STATUS Fasting [facility] 07/09/2006 7:44 AM CDT 07/09/2006 7:44 AM CDT Priya Rey NP CHEMISTRY Performing Organization Address City/State/[facility] Co de Phone Number [facility] [address] [place] [address] * GYNECOLOGICAL PANEL (06/19/2006 10:59 AM CDT) CYTOLOGY ??CYTOPATHOLOGY REPORT ??[facility] ?? Status: Final Report ? [id number] ?? CLINICAL INFORMATION ?LMP ? : 06/01/06 ?Previous Pap Date ? : 03/13 ?Previous PAP Dx ? : Negative ?Previous [place]/bx date : None ?Previous Colposcopy/Bx: None ?Appearance of Cervix ??: Not given ?[place]/Bx done today ?: No ?HPV Request ? [...] 06/19/06 ?? ACCESSIONED: 06/22/06 ?? SIGNED: 06/30/06 [facility] 06/19/2006 10:5 9 AM CDT 06/22/2006 11:44 AM CDT Priya Rey NP PATHOLOGY/CYTOLOGY [facility] INTERNAL ZIP [address] [address] from Last 3 Months or Most Recently Relevant to Health Maintenance Care Teams Care Tech Relationship Specialty Start Date End Date Anirudh Gee MD [address] [place] [address] PCP - General Internal Medicine 09/26/19
== END 2024-06-14 17:03 | disposition home or self-care (01) ==
LOC: NFLDREF 06-15 11:00
PROVIDERS: PCP Internal Medicine; Referring Provider Internal Medicine; Visit Provider Internal Medicine
DX: R19.7 Diarrhea, unspecified (principal)
CPT/HCPCS: 87045; 87046; 87329; 87427; 87493

== ENCOUNTER 2024-09-06 07:30 | Outpatient (CLI) | payer OTHER, SELFPAY ==
--- OUTSIDE RECORDS SUMMARY | 2024-09-08 05:46 | XMS_ITS | Clinical Summary ---
Author Organization [facility] Address [address], [place] [address] Care Team Providers Care Latin American Studies Professor Name Role Phone Pcp, Pt Declines MD Primary Care Provider Source Comments You are receiving this document as you are listed as the primary care provider,follow-up provider, or the patient has been referred to you for consultation.This is in compliance with the Medicare and[facility] EHR Incentive Program,which states Providers who transition their patient to another setting of careor provider of care or refers their patient to another provider of care shouldprovide summary care record for each transition of care or referral. [facility] Allergies Active Allergy Reactions Criticality Noted Date [...] 11/17/2019 09/22/2019 COVID-19 Vaccine ( - season) 2024 Influenza (#1) 2024 09/09/2007, 09/09/2007 DTaP/Tdap/Td (2 - Tdap) 09/22/2029 09/22/20 19, 11/11/2008, 11/09/2006, Additional history exists RSV (1 - 1-dose 75+ series) 2035 HepA Aged Out No longer eligi ble based on patient's age to complete this topic HepB Aged Out No longer eligi ble based on patient's age to complete this topic Hib Aged Out No longer eligi ble based on patient's age to complete this topic IPV (Polio) Aged Out No longer eligi ble based on patient's age to complete this topic Infant RSV Aged Out No longer eligi ble based on patient's age to complete this topic MCV4 Aged Out No longer eligi ble based on patient's age to complete this topic Pneumococcal Aged Out No longer eligi ble based on patient's age to complete this topic Care Teams Latin American Studies Professor Relationship Specialty Start Date End Date Pcp, [place] [address] PCP - General 07/15/17
--- OUTSIDE RECORDS SUMMARY | 2024-09-08 05:46 | XMS_ITS | Clinical Summary ---
Author Organization [facility] Address [address] [place] [address] Care Team Providers Care Teacher Of The Emotionally Disturbed Name Role Phone Unavailable Primary Care Provider Unavailabl e Source Comments Patient records contain information from all sites at [facility]. For routine questions regarding patient records, call [phone] during business hours, M-F 8:00 AM - 5:00 PM Central Time. Record requests for emergency care only can be directed to [phone] at any time.[facility] Allergies Active Allergy Reactions Criticality Noted Date Comments House Dust Mite Other (see comments) 10/23/2004 No reaction listed Mold Other (see comments) 10/23/2004 No reaction listed Ragweed Other (see comments) 09/20/2015 Sneezing Homer Other (see comments) 10/23/2004 No reaction listed Medications metroNIDAZOLE (ROSADAN) 0.75 % gel Apply 1 application topically 2 (two) times a day. Apply to face twice daily. 5 Active HYDROcodone-katelin taminophen (NORCO) 7.5-325 mg per tablet Take 1 tablet by mouth every 6 (six) hours as needed. 2 Active escitalopram (LEXAPRO) 10 mg tablet 3 8 Active fluticasone (FLONASE) 50 mcg/actuation nasal spray Seasonal 11 8 Active meclizine (ANTIVERT) 25 mg tablet Take 25 mg by mouth. 7 Active famotidine (PEPCID) 40 mg tablet Take 1 tablet (40 mg total) by mouth daily. 30 tablet 11 0 Active omeprazole (PriLOSEC) [address] capsule TAKE ONE CAPSULE BY MOUTH ONE TIME DAILY 90 capsule 2 Active Active Problems Problem Noted Date Diagnosed [...] and Family Not on file 05/24/2020 Attends Faith Services Not on file 05/24 Do you belong to any clubs o r organizations such as restorationist groups, unions, fraternal or athletic groups, or [...] care, and heating? Not very hard 05/24/2020 [facility] of Occupat ional Health - Occupational Stress [...] Date Recorded Dental: Regular Dentist Unknown 06/27/20 23 Education Answer Date Recorded What is the highest level of school you have completed or the highest degree you have received? Some college, no degree 11/28/2019 Comments No Sex and Gender Information Value Date Recorded Sex Assigned at Female 05/25/2020 8:23 AM CDT Legal Sex Female 10:53 PM SEWER PIPE LAYER HELPER Gender Identity Female 05/25/2020 8:23 AM CDT [...] Body Mass Index 33.91 12/02/2019 8:20 AM SEWER PIPE LAYER HELPER Plan of Treatment Upcoming Encounters Date Type Department Care Team (Latest Contact Info) Description 10/20/2024 12:45 PM SEWER PIPE LAYER HELPER Clinical Communication Virtual Review in [place], [place] [address] [place] [address] 10/24/2024 8:00 AM SEWER PIPE LAYER HELPER Comprehensive Visit Division of Gastroenterology in [place], [place] [address] [place] [phone] Anirudh Gee M.D. [address] [place] [phone] Health Maintenance Due Date Last Done Comments CT Colonography 1960 Cologuard 1960 Fasting Glucose for Diabetes Screening 1960 HIV Screening 1960 Hepatitis C Screening 1960 Lipid (Cholesterol) Screening 1960 Zoster Vaccines (2 of 2) 11/17/2019 09/22/2019 Mammogram 09/23/2023 09/23/2022, 11/10, 10/23/2017, Additional history exists Depression Screening (Annual PHQ-2) 11/09/2023 COVID-19 Vaccine ( season) 2024 Colonoscopy 05/28/2025 05/28/2020, 05/10, 10/01/2015, Additional history exists Colorectal Cancer Surveillance 05/28/2025 DTaP,Tdap,and Td Vaccines (2 - Td or Tdap) 09/22/2029 09/22/2019, 11/11/2008, 11/09/1996 IPV Vaccines Aged Out No longer eligi ble based on patient's age to complete this topic Pneumococcal vaccine (0-64 years) Aged Out No longer eligible based on patient's age to complete this topic Medical Devices Implanted Type Area Elevator Technician Device Identifier Shelf Expiration Date Model / [...] inpatients and all outpatients) 09/23/2022 10:30 AM SEWER PIPE LAYER HELPER Screening Mammogram Breast Cancer COLONOSCOPY RESTRICTED Routine 05/28/2020 7:33 AM CDT Cancer Colon Family History Genetic Susceptibility To Cancer from Last 3 Months or Most Recently Relevant to Health Maintenance Results * BI Breast Screening Bilateral with Tomosynthesis (09/23/2022 10:30 AM SEWER PIPE LAYER HELPER) Anatomical Region Laterality Modality Breast, Breast Imaging RST L OS, Breast Imaging ARZ LOS, Breast Imaging FLA LOS Bilateral Mammography 09/23/2022 11:1 0 AM SEWER PIPE LAYER HELPER Impressions 09/23/2022 11:26 AM SEWER PIPE LAYER HELPER Negative. RECOMMENDATION: ??Annual Screening Mammogram ASSESSMENT: ??BI-RADS: 1: Negative. Narrative 09/23/2022 11:26 AM SEWER PIPE LAYER HELPER EXAM: ??BI BREAST SCREENING BILATERAL WITH TOMOSYNTHESIS [...] ASSESSMENT: BI-RADS: 1: Negative. Anirudh Gee M.D. [facility] Final Result from Last 3 Months or Most Recently Relevant to Health Maintenance Insurance [facility]
--- OUTSIDE RECORDS SUMMARY | 2024-09-08 05:46 | XMS_ITS | Referral Summary ---
Author Organization [facility] Address [address] [place] [address] Care Team Providers Care Carbide Tool Die Maker Name Role Phone Unavailable Primary Care Provider Unavailabl e Source Comments Patient records contain information from all sites at [facility]. For routine questions regarding patient records, call [phone] during business hours, M-F 8:00 AM - 5:00 PM Central Time. Record requests for emergency care only can be directed to [phone] at any time.[facility] Allergies Active Allergy Reactions Criticality Noted [...] and Family Not on file 05/24/2020 Attends Confucianism Services Not on file 05/24 Do you belong to any clubs o r organizations such as sikhism groups, unions, fraternal or athletic groups, or [...] care, and heating? Not very hard 05/24/2020 [facility] of Occupat ional Health - Occupational Stress [...] AM CDT Legal Sex Female 10:53 PM SHOP LEAD Gender Identity Female 05/25/2020 8:23 AM CDT [...] Body Mass Index 33.91 12/02/2019 8:20 AM SHOP LEAD Plan of Treatment Upcoming Encounters Date Type Department Care Team (Latest Contact Info) Description 10/20/2024 12:45 PM SHOP LEAD Clinical Communication Virtual Review in [place], [place] [address] [place] [address] 10/24/2024 8:00 AM SHOP LEAD Comprehensive Visit Division of Gastroenterology in [place], [place] [address] [place] [address] Anirudh Gee M.D. [address] [place] [phone] Medical Devices Implanted Type Area Cottage Cheese Maker Device Identifier Shelf Expiration Date Model / [...] inpatients and all outpatients) 09/23/2022 10:30 AM SHOP LEAD Screening Mammogram Breast Cancer COLONOSCOPY RESTRICTED Routine 05/28/2020 7:33 AM CDT Cancer Colon Family History Genetic Susceptibility To Cancer from Last 3 Months or Most Recently Relevant to Health Maintenance Results * BI Breast Screening Bilateral with Tomosynthesis (09/23/2022 10:30 AM SHOP LEAD) Anatomical Region Laterality Modality Breast, Breast Imaging RST L OS, Breast Imaging ARZ LOS, Breast Imaging FLA LOS Bilateral Mammography 09/23/2022 11:1 0 AM SHOP LEAD Impressions 09/23/2022 11:26 AM SHOP LEAD Negative. RECOMMENDATION: ??Annual Screening Mammogram ASSESSMENT: ??BI-RADS: 1: Negative. Narrative 09/23/2022 11:26 AM SHOP LEAD EXAM: ??BI BREAST SCREENING BILATERAL WITH TOMOSYNTHESIS [...] ASSESSMENT: BI-RADS: 1: Negative. Anirudh Gee M.D. [facility] BI PROCEDURES Final Result from Last 3 Months or Most Recently Relevant to Health Maintenance Insurance [facility]
--- OUTSIDE RECORDS SUMMARY | 2024-09-08 05:46 | XMS_ITS | Encounter Summary ---
Author Organization [facility] Address [address] [place] [address] Care Team Providers Care Dock Or Pier Laborer Name Role Phone Unavailable Primary Care Provider Unavailabl e Reason for Referral * Outpatient (Routine) - Closed Specialty Diagnoses / Procedures Referred By Christine owens Referred To Contact Gynecology Diagnoses Infection Urinary Tract Chronic Chiqui Edwards M.D. Phone: tel: fax: [facility] Referral ID Status Reason Start Date Expiration Date Visits Re quested Visits Authorized [id number] Closed 07/09/2018 07/09/2019 1 1 Encounter Details Date Type Department Care Team (Late st Contact Info) Description 07/09/2018 [facility] [address] [place] [address] Chiqui Edwards M.D. [address] [place] [address] Infection Urinary Tract Chronic (Primary Dx) Social History Tobacco Use Types Packs/Day Years Used Date Smoking Tobacco: Unknown Comments Unknown Sex and Gender Information Value Date Recorded Sex Assigned at Female 05/25/2020 8:23 AM CDT Legal Sex Female 10:53 PM RAG CUTTING MACHINE OPERATOR Gender Identity Female 05/25/2020 8:23 AM CDT Sexual Orientation Straight 05/25/2020 8: 23 AM CDT documented as of this encounter Plan of Treatment Upcoming Encounters Date Type Department Care Team (Latest Contact Info) Description 10/20/2024 12:45 PM RAG CUTTING MACHINE OPERATOR Clinical Communication Virtual Review in [place], [place] [address] [place] [address] 10/24/2024 8:00 AM RAG CUTTING MACHINE OPERATOR Comprehensive Visit Division of Gastroenterology in [place], [place] [address] [place] [address] Anirudh Gee M.D. [address] [place] [phone] Scheduled Referrals Name Type Priority Associated Diagnoses [...]
--- OUTSIDE RECORDS SUMMARY | 2024-09-08 05:46 | XMS_ITS | Clinical Summary ---
Author Organization [facility] Address [place], [place] [address] Care Team Providers Care Supervisor Spinning Name Role Phone Anirudh Gee MD Primary [...] Comments Blood Pressure 111/71 12/16/2021 1:30 PM FILTERING MACHINE TENDER Pulse 80 12/16/2021 1:30 PM FILTERING MACHINE TENDER Temperature 36.7 ??C (98 ??F) 12/16/2021 1:30 PM FILTERING MACHINE TENDER Respiratory Rate - - Oxygen Saturation 97% 12/16/2021 1:30 PM FILTERING MACHINE TENDER Inhaled Oxygen Concentration - - Weight 89.3 kg (196 lb 12.8 oz) 12/16/2021 1:30 PM FILTERING MACHINE TENDER shoes on Height - - Body Mass [...] Tetanus booster 11/09/2016 11/09/2006 COVID-19 vaccine series (1 - 2024-25 season) 2024 Influenza for age 50-64 07/10/2024 Pneumococcal series [...] CDT) CHOLESTEROL,TOTAL 214(H) 110 - 199 mg/dL [facility] TRIGLYCERIDES 68 <150 mg/dL [facility] HDL CHOLESTEROL 45 >40 mg/dL [facility] CHOL/HDL RATIO 4.76(H) <4.51 [facility] LDL CHOLESTEROL 155(H) <131 mg/dL [facility] PATIENT STATUS Fasting [facility] 07/09/2006 7:44 AM CDT 07/09/2006 7:44 AM CDT Priya Rey NP CHEMISTRY Performing Organization Address City/State/[facility] Co de Phone Number [facility] [address] [place] [phone] * GYNECOLOGICAL PANEL (06/19/2006 10:59 AM CDT) CYTOLOGY ??CYTOPATHOLOGY REPORT ??[facility] ?? Status: Final Report ? [id number] ?? CLINICAL INFORMATION ?LMP ? : 06/01/06 ?Previous Pap Date ? : 03/13 ?Previous PAP Dx ? : Negative ?Previous [place]/bx date : None ?Previous Colposcopy/Bx: None ?Appearance of Cervix ??: Not given ?[place]/Bx done today ?: No ?HPV Request ? [...] 06/19/06 ?? ACCESSIONED: 06/22/06 ?? SIGNED: 06/30/06 06/19/2006 10:5 9 AM CDT 06/22/2006 11:44 AM CDT Priya Rey NP PATHOLOGY/CYTOLOGY LABORATORY INTERNAL ZIP [address] [address] from Last 3 Months or Most Recently Relevant to Health Maintenance Care Teams Supervisor Spinning Relationship Specialty Start Date End Date Anirudh Gee MD [address] [place] [address] PCP - General Internal Medicine 09/26/19
--- OUTSIDE RECORDS SUMMARY | 2024-09-08 05:46 | XMS_ITS ---
Author Organization [facility] Address [address] [place] [address] Care Team Providers Care Small Boat Engineer Name Role Phone Unavailable Unavailable Unavailable Surgery Details Not on file Complications Check Surgery Details section. Procedure Estimated Blood Loss Check Surgery Details section. Procedure Findings Check Surgery Details section. Procedure Specimens Taken Check Surgery Details section.
== END 2024-09-06 07:31 | disposition home or self-care (01) ==
LOC: NFLDREF 09-08 05:44
PROVIDERS: PCP Internal Medicine; Referring Provider Internal Medicine; Visit Provider Internal Medicine
DX: R19.7 Diarrhea, unspecified (principal)
CPT/HCPCS: 87045; 87046; 87427

== ENCOUNTER 2025-06-07 12:39 | Outpatient (CLI) | payer OTHER, SELFPAY | END 2025-06-07 12:40 | disposition home or self-care (01) | LOC: NFLDREF 06-08 17:51 | PROVIDERS: PCP Internal Medicine; Referring Provider Internal Medicine; Visit Provider Internal Medicine | DX: N39.0 Urinary tract infection, site not specified (principal); B96.20 Unspecified Escherichia coli [E. coli] as the cause of diseases classified elsewhere | CPT/HCPCS: 87086 ==